=== PATIENT | male | born 1995 | race Caucasian/White ===

== ENCOUNTER 2017-07-06 11:44 | Emergency (ER) | payer SELFPAY ==
[2017-07-06 12:17] VITALS: BP 134/59; PULSE 67; RESP 12; TEMP 98.4; O2SAT 98
[2017-07-06] MEDS ORDERED: AZIT250T3 PO (13:27)
[2017-07-06] MEDS ORDERED: ALBUAER3 INH (13:27)
--- NOTE | 2017-07-06 13:27 | PD ---
HPI Chief Complaint: Cold / Flu Symptoms Time Seen by Provider: 12:52 Travel History International Travel<30 days: No Contact w/Intl Traveler<30days: No Traveled to known affect area: No History of Present Illness HPI 21 yo M c/o cough for about one week. OTC medications have helped minimally. 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 Denies fever. No chest pain. Similar episodes have occurred previously in the remote past. Patient smokes tobacco. PFSH Past Medical History Immunizations Current: Yes Social History Alcohol Use: Yes (OCC) Tobacco Use: Yes Substance Use: Yes (marijuana) Allergies-Medications (Allergen,Severity, Reaction): Coded Allergies: No Known Allergies (Verified , 05/07/16) Reported Meds & Prescriptions Reported Meds & Active Scripts Active No Active Prescriptions or Reported Medications Review of Systems Except as stated in HPI: all other systems reviewed are Neg General / Constitutional: No: Fever Physical Exam Narrative GENERAL: 21-year-old male pleasant well-nourished well-developed Vital Signs Date Time Temp Pulse Resp B/P (MAP) Pulse Ox O2 Delivery O2 Flow Rate FiO2 07/06/17 12:57 18 97 Room Air 07/06/17 12:17 98.4 67 12 134/59 (84) 98 SKIN: Warm and dry. HEAD: Atraumatic. Normocephalic. EYES: Pupils equal and round. No scleral icterus. No injection or drainage. ENT: No nasal bleeding or discharge. Mucous membranes pink and moist. NECK: Trachea midline. No JVD. CARDIOVASCULAR: Regular rate and rhythm. RESPIRATORY: No accessory muscle use. Clear to auscultation. Breath sounds equal bilaterally. GASTROINTESTINAL: Abdomen soft, non-tender, nondistended. Hepatic and splenic margins not palpable. MUSCULOSKELETAL: Extremities without clubbing, cyanosis, or edema. No obvious deformities. NEUROLOGICAL: Awake and alert. No obvious cranial nerve deficits. Motor grossly within normal limits. Five out of 5 muscle strength in the arms and legs. Normal speech. PSYCHIATRIC: Appropriate mood and affect; insight and judgment normal. Data Data Last Documented VS Vital Signs Date Time Temp Pulse Resp B/P (MAP) Pulse Ox O2 Delivery O2 Flow Rate FiO2 07/06/17 12:57 18 97 Room Air 07/06/17 12:17 98.4 67 134/59 (84) Orders Orders Chest, Pa & Lat (07/06/17 ) MDM Medical Decision Making Medical Screen Exam Complete: Yes Emergency Medical Condition: Yes Medical Record Reviewed: Yes Differential Diagnosis bronchitis, pneumonia, influenza Narrative Course Scripts as below. Patient ready for discharge. Diagnosis Primary Impression: Bronchitis Med/Other Pt SpecificInfo: Prescription(s) given Scripts Albuterol 8.5 GM Inh (Proair Hfa 8.5 GM Inh) 90 Mcg/Act Aer 2 PUFF INH Q6H Y for SHORTNESS OF BREATH, #1 INHALER 0 Refills 108 mcg/actuation Prov: Vinicio Guevara MD 07/06/17 Azithromycin (Azithromycin) 250 Mg Tab 250 MG PO DIRECTED for Infection, #6 TAB 0 Refills Take 2 tabs (500 mg) on day 1 then 1 tab daily x 4 days. Prov: Vinicio Guevara MD 07/06/17 Disposition: 01 DISCHARGE HOME Condition: Stable Vinicio Guevara MD Jul 06, 2017 13:27
[2017-07-06] MEDS ORDERED: ALBUTEROL SULFATE 90 MCG/ACT HFA 8 GM INHALER INH ONE (13:30)
[2017-07-06] MEDS ORDERED: DEXAMETHASONE SOD PHOS 20 MG/5 ML VIAL IM ONE (13:30)
--- NOTE | 2017-07-06 13:35 | RADRPT ---
EXAM DATE/TIME: 07/06/2017 12:40 [facility] COMPARISON: No previous studies available for comparison. INDICATIONS : Cough and shortness of breath. MEDICAL HISTORY : None. SURGICAL HISTORY : None. ENCOUNTER: Initial ACUITY: 2 weeks PAIN SCORE: 0/10 LOCATION: Bilateral chest FINDINGS: PA and lateral views of the chest demonstrate a normal-sized cardiac silhouette. There is no effusion , consolidation, or pneumothorax. The bones and soft tissues demonstrate no acute abnormality. CONCLUSION: No acute cardiopulmonary abnormality is identified. Nathen Navarrete MD on July 06, 2017 at 13:33 Board Certified Radiologist. This report was verified electronically.
== END 2017-07-06 14:57 | disposition home or self-care (01) ==
LOC: NEPD 11:44
DX: J40 Bronchitis, not specified as acute or chronic (principal); Z72.0 Tobacco use; F12.90 Cannabis use, unspecified, uncomplicated
CPT/HCPCS: 71046; 96372; 99283; J1100

== ENCOUNTER 2017-08-09 18:34 | Emergency (ER) | payer OTHER ==
[~2017-08-09] VITALS: Ht 180.3 cm; Wt 66.0 kg
[~2017-08-09 18:34] MED LIST: ALBUAER3 INH; AZIT250T3 PO
[2017-08-09 18:40] VITALS: BP 124/75; PULSE 64; RESP 17; TEMP 98.8; O2SAT 100
[2017-08-09] MEDS ORDERED: KETOROLAC TROMETHAMINE 30 MG/ML (IVP) VIAL IV PUSH ONE (19:15)
[2017-08-09] MEDS ORDERED: SODIUM CHLORIDE 0.9% FLUSH 10 ML FLUSH IVF PRN (19:15)
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
[2017-08-09 19:42] VITALS: PULSE 73; RESP 16; O2SAT 99
[2017-08-09] MEDS ORDERED: IOHEXOL 350 MG/ML 10 ML VIAL (for RAD DIAG) IVCONTRAST ONE (20:23)
[2017-08-09 20:30] LABS: AUTOMATED NEUTROPHIL # 4.3 TH/MM3 (1.8-7.7); BASOPHIL % 0.3 % (0.0-2.0); EOSINOPHIL % 0.3 % (0.0-4.0); HEMATOCRIT 43.9 % (39.0-51.0); HEMOGLOBIN 14.8 GM/DL (13.0-17.0); LYMPH % 24.5 % (9.0-44.0); LYMPHOCYTE # 1.5 TH/MM3 (1.0-4.8); MEAN CELL VOLUME 93.6 FL (80.0-100.0); MEAN CORPUSCULAR HEMOGLOBIN 31.6 PG (27.0-34.0); MEAN CORPUSCULAR HGB CONC 33.8 % (32.0-36.0); MEAN PLATELET VOLUME 7.4 FL (7.0-11.0); MONO % 6.2 % (0.0-8.0); MONOCYTE # 0.4 TH/MM3 (0-0.9); NEUT % 68.7 % (16.0-70.0); PLATELET COUNT 215 TH/MM3 (150-450); RED BLOOD COUNT 4.69 MIL/MM3 (4.50-5.90); WHITE BLOOD COUNT 6.2 TH/MM3 (4.0-11.0)
[2017-08-09 20:42] LABS: BICARBONATE 28.6 MEQ/L (21.0-32.0); CALCIUM 8.9 MG/DL (8.5-10.1); CREATININE 1.05 MG/DL (0.60-1.30)
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
[2017-08-09 20:57] LABS: INTERNATIONAL NORMALIZED RATIO 1.1 RATIO; PROTHROMBIN TIME - PATIENT 10.7 SEC (9.8-11.6)
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
[2017-08-09] MEDS ORDERED: IBUP-232 PO (21:22)
== END 2017-08-09 21:32 | disposition home or self-care (01) ==
LOC: NEPD 18:34
DX: S20.212A Contusion of left front wall of thorax, initial encounter (principal); S00.03XA Contusion of scalp, initial encounter; V48.5XXA Car driver injured in noncollision transport accident in traffic accident, initial encounter; Y92.411 Interstate highway as the place of occurrence of the external cause
CPT/HCPCS: 70450; 71260; 72125; 74177; 80048; 85025; 85610; 85730; 86850; 86900; 86901; 96374; 99284; J1885; Q9967